=== PATIENT | female | born 1980 | race Caucasian/White ===

== ENCOUNTER 2018-10-06 17:33 | Emergency (ER) | payer OTHER ==
[~2018-10-06] VITALS: Ht 177.8 cm; Wt 104.5 kg
[2018-10-06 17:47] VITALS: BP 140/83
[2018-10-06 18:27] LABS: BASO % 0.3 % (0.0-2.0); EOS % 0.3 % (0-4.0); GRAN # 6.8 (1.4-6.5); GRAN % 78.9 % (42.2-75.2); HEMATOCRIT 39.3 % (37.0-47.0); HEMOGLOBIN 13.4 g/dl (12.5-16.0); LYMPH # 1.1 (1.2-3.4); LYMPH % 12.5 % (20.0-51.0); MEAN CELL VOLUME 89 fl (80.0-100.0); MEAN CORPUSCULAR HEMOGLOBIN 30 pg (27.0-31.0); MEAN CORPUSCULAR HGB CONC 34 g/dl (33.0-37.0); MEAN PLATELET VOLUME 10.2 fl (7.4-10.4); MONO # 0.7 (0.1-0.6); MONO % 7.7 % (1.7-9.3); PLATELET COUNT 267 K/mm3 (130-400); RED BLOOD COUNT 4.43 M/mm3 (4.10-5.30); REDCELL DISTRIBUTION WIDTH-CV 12.1 % (11.5-14.5)
[2018-10-06 18:53] LABS: ALBUMIN 4.4 gm/dL (3.5-5.0); BILIRUBIN,TOTAL 0.4 mg/dL (0.0-1.0); C-REACTIVE PROTEIN 1.9 mg/dL (0.0-0.9); CALCIUM 9.3 mg/dL (8.4-10.2); CREATININE, serum 0.71 (0.52-1.25); POTASSIUM 3.8 mmol/L (3.4-5.0); TOTAL PROTEIN 7.5 gm/dL (6.4-8.2)
[2018-10-06] MEDS ORDERED: ZOFRAN ODT4 MG PO (20:01)
[2018-10-06] MEDS ORDERED: CIPRO 500MG TA500 MG PO (20:01)
[2018-10-06] MEDS ORDERED: FLAGYL500 MG PO (20:01)
[2018-10-06] MEDS ORDERED: NORCO 325 MG-51 TAB PO (20:01)
[2018-10-06 21:22] VITALS: PULSE 61; TEMP 97.7
[2018-10-07] MEDS ORDERED: MOTRIN 800800 MG/TAB PO (03:09)
[2018-10-07] MEDS ORDERED: PERCOCET 325 MG1 TA2 PO (04:34)
== END 2018-10-06 21:22 | disposition home or self-care (01) ==
LOC: COL.ER 17:33
PROVIDERS: Nurse Practitioner
DX: K52.9 Noninfective gastroenteritis and colitis, unspecified (principal); Z98.890 Other specified postprocedural states; Z88.0 Allergy status to penicillin
CPT/HCPCS: J1170; J2405; J7030; Q9967

== ENCOUNTER 2018-10-07 02:54 | Emergency (ER) | payer OTHER ==
[~2018-10-07] VITALS: Ht 177.8 cm; Wt 104.5 kg
[~2018-10-07 02:54] MED LIST: CIPRO 500MG TA500 MG PO; FLAGYL500 MG PO; NORCO 325 MG-51 TAB PO; ZOFRAN ODT4 MG PO
[2018-10-07 02:57] VITALS: BP 142/81; TEMP 97
[2018-10-07] MEDS ORDERED: MOTRIN 800800 MG/TAB PO (03:09)
[2018-10-07] MEDS ORDERED: PERCOCET 325 MG1 TA2 PO (04:34)
[2018-10-07 04:50] VITALS: PULSE 63
== END 2018-10-07 04:45 | disposition home or self-care (01) ==
LOC: COL.ER 02:54
DX: K50.00 Crohn's disease of small intestine without complications (principal); E66.9 Obesity, unspecified; Z68.33 Body mass index [BMI] 33.0-33.9, adult; Z98.890 Other specified postprocedural states
CPT/HCPCS: J1170; J1885

== ENCOUNTER 2020-02-14 06:50 | Emergency (ER) | payer BC ==
[~2020-02-14] VITALS: Ht 180.3 cm; Wt 90.9 kg
[~2020-02-14 06:50] MED LIST changes: +MOTRIN 800800 MG/TAB PO; +PERCOCET 325 MG1 TA2 PO
[2020-02-14 06:57] VITALS: BP 132/63; TEMP 98.4
[2020-02-14] MEDS ORDERED: MOTRIN 400400 MG/TAB PO (07:59)
[2020-02-14 08:23] VITALS: PULSE 65
== END 2020-02-14 08:24 | disposition home or self-care (01) ==
LOC: COL.ER 06:50
DX: S63.602A Unspecified sprain of left thumb, initial encounter (principal); K50.00 Crohn's disease of small intestine without complications; Z88.0 Allergy status to penicillin; V40.5XXA Car driver injured in collision with pedestrian or animal in traffic accident, initial encounter; W22.11XA Striking against or struck by driver side automobile airbag, initial encounter